=== PATIENT | male | born 1985 | race Caucasian/White ===

== ENCOUNTER 2016-11-07 11:52 | Emergency (ER) | payer BC ==
[~2016-11-07 11:52] MED LIST: ADDERALL20 MG PO; ADVIL PO
== END 2016-11-07 11:55 | disposition home or self-care (01) ==
LOC: ER 11:52
PROC: 0C9P3ZZ Drainage of Tonsils, Percutaneous Approach (ICD-10-PCS; principal; 2016-11-07)
DX: J36 Peritonsillar abscess (principal); F17.200 Nicotine dependence, unspecified, uncomplicated; Z79.899 Other long term (current) drug therapy
CPT/HCPCS: 99282; A9270-GY